=== PATIENT | female | born 1960 | race Caucasian/White ===

== ENCOUNTER 2022-02-18 10:51 | Emergency (ER) | payer MEDICARE, OTHER ==
[~2022-02-18] VITALS: Ht 180.3 cm; Wt 68.9 kg
[2022-02-18] MEDS ORDERED: FEXOFENADINE (11:09)
[2022-02-18] MEDS ORDERED: OXYBUTYNIN CHLOR5 M1 PO (11:09)
[2022-02-18] MEDS ORDERED: TIZANIDINE HCL4 M1 PO (11:09)
[2022-02-18] MEDS ORDERED: KETOROLAC TROMETHAMINE 30 MG/ML VIAL IM NR (11:15)
[2022-02-18] MEDS ORDERED: KETOROLAC TROMETHAMINE 30 MG/ML VIAL ONE (11:33)
[2022-02-18] MEDS ORDERED: ULTRACET TABLE1 EACH PO (12:33)
== END 2022-02-18 12:45 | disposition home or self-care (01) ==
LOC: FSED 10:55
DX: S52.021A Displaced fracture of olecranon process without intraarticular extension of right ulna, initial encounter for closed fracture (principal); W18.39XA Other fall on same level, initial encounter; Y92.89 Other specified places as the place of occurrence of the external cause; G12.23 Primary lateral sclerosis
CPT/HCPCS: 29125; 73080; 73090; 96372; 99284; J1885